=== PATIENT | male | born 1960 | race Caucasian/White ===

== ENCOUNTER 2022-03-05 08:26 | Day surgery (SDC) | payer BC ==
[2022-03-02 13:34] VITALS: BMI 32.3
[2022-03-05 10:46] VITALS: BP 138/86; PULSE 67; RESP 20; TEMP 97.5
== END 2022-03-05 10:46 | disposition home or self-care (01) ==
LOC: FASU-ENDO 08:26
PROVIDERS: ATTEND Student in an Organized Health Care Education/Training Program
PROC: 0DB68ZX Excision of Stomach, Via Natural or Artificial Opening Endoscopic, Diagnostic (ICD-10-PCS; 2022-03-05)
PROC: 0DB98ZX Excision of Duodenum, Via Natural or Artificial Opening Endoscopic, Diagnostic (ICD-10-PCS; principal; 2022-03-05 09:49)
DX: K29.50 Unspecified chronic gastritis without bleeding (principal); K31.7 Polyp of stomach and duodenum; K44.9 Diaphragmatic hernia without obstruction or gangrene; K31.9 Disease of stomach and duodenum, unspecified; R10.13 Epigastric pain; R68.81 Early satiety
CPT/HCPCS: 88305-TC; 88342-TC

== ENCOUNTER 2022-03-06 12:55 | Observation (INO) | payer BC ==
[2022-03-06 13:48] LABS: HEMOGLOBIN 16.9 G/dL (11.7-16.9); MCH 30.5 pg (25.7-33.7); MCHC 35.3 g/dl (32.0-35.9); MEAN CELL VOLUME 86.4 fl (80-96); MEAN PLT VOLUME 7.6 fl (7.5-11.1); RBC 5.56 10^6/uL (4.00-5.60); RDW 14.6 % (11.9-15.9); WHITE BLOOD COUNT 7.4 10^3/uL (4.0-10.8)
[2022-03-06 13:56] LABS: ALBUMIN 4.4 g/dl (3.4-5.0); CALCIUM 9.7 mg/dl (8.5-10); CREATININE 0.9 mg/dl (0.55-1.3); TOT PROT 7.3 g/dl (6.4-8.2)
[2022-03-06 14:41] LABS: PLATELET ESTIMATE ADEQUATE
[2022-03-06 15:14] LABS: PHENCYCLIDINE,URINE NEGATIVE (NEGATIVE)
[2022-03-06 15:15] LABS: COCAINE, UR NEGATIVE (NEGATIVE); METHADONE, UR NEGATIVE (NEGATIVE); OPIATES, URI NEGATIVE (NEGATIVE); URINE BENZODIAZEPINES NEGATIVE (NEGATIVE)
[2022-03-06 15:22] LABS: URINE AMPHETAMINES NEGATIVE (NEGATIVE); URINE BARBITURATES NEGATIVE (NEGATIVE)
[2022-03-06] MEDS ORDERED: PANTOPRAZOLE SODIUM 40 MG in SODIUM CHLORIDE 100 ML IVPB ONE (15:24)
[2022-03-06] MEDS: ASPIRIN COATED 81 MG TABLET.EC PO SCH (15:35)
[2022-03-06 18:46] VITALS: BMI 34.4
[2022-03-07 08:08] LABS: HEMATOCRIT 44.7 % (35.4-49); HEMOGLOBIN 15.8 G/dL (11.7-16.9); MCH 30.7 pg (25.7-33.7); MCHC 35.4 g/dl (32.0-35.9); MEAN CELL VOLUME 86.8 fl (80-96); MEAN PLT VOLUME 7.8 fl (7.5-11.1); PLATELET COUNT 206.4 10^3/uL (134-434); RBC 5.15 10^6/uL (4.00-5.60); RDW 14.5 % (11.9-15.9); WHITE BLOOD COUNT 7.4 10^3/uL (4.0-10.8)
[2022-03-07 08:23] LABS: ALBUMIN 3.7 g/dl (3.4-5.0); BILIRUBIN,TOTAL 1.3 mg/dl (0.2-1); CALCIUM 8.9 mg/dl (8.5-10); CREATININE 0.8 mg/dl (0.55-1.3); MAGNESIUM 1.9 mg/dL (1.8-2.4); TOT PROT 6.2 g/dl (6.4-8.2)
[2022-03-07 08:54] VITALS: PULSE 83; RESP 16
[2022-03-07] MEDS: ASPIRIN COATED 81 MG TABLET.EC PO SCH (09:28)
[2022-03-07] MEDS ORDERED: PANTOPRAZOLE 20 MG TABLET PO SCH (10:00)
[2022-03-07] MEDS ORDERED: DOCUSATE SODIUM 100 MG CAPSULE (FP) PO SCH (11:33)
[2022-03-07 12:08] LABS: PLATELET ESTIMATE ADEQUATE
[2022-03-07 13:27] VITALS: BP 134/96; TEMP 98.4
[2022-03-07] MEDS ORDERED: ATORVASTATIN CA 40 MG TABLET (FP) PO SCH (22:00)
== END 2022-03-07 14:57 | disposition home or self-care (01) ==
LOC: FER 12:55 → FM/S 17:29
PROVIDERS: ADMIT Internal Medicine; ATTEND Nurse Practitioner Family
PROC: 3E033GC Introduction of Other Therapeutic Substance into Peripheral Vein, Percutaneous Approach (ICD-10-PCS; principal; 2022-03-06)
DX: K21.9 Gastro-esophageal reflux disease without esophagitis (principal); G45.9 Transient cerebral ischemic attack, unspecified; Z96.651 Presence of right artificial knee joint; K58.9 Irritable bowel syndrome, unspecified; E78.5 Hyperlipidemia, unspecified; Z20.822 Contact with and (suspected) exposure to COVID-19
CPT/HCPCS: 0241U-QW; 36415; 70450-TC; 71045-TC-FY; 80053; 80061; 80307; 81003; 83036; 83735; 84443; 84484; 85027; 93005; 99285-25; G0378

== ENCOUNTER 2022-07-29 06:00 | Day surgery (SDC) | payer BC ==
[2022-07-26 10:44] VITALS: BMI 33.9
[2022-07-29] MEDS ORDERED: ceFAZolin SODIUM 1 GM VIAL IVPB ONE (08:20)
[2022-07-29] MEDS ORDERED: BUPIVACAINE HCL/PF 0.5% (5MG/ML) 10 ML VIAL IJ ONE ×2 (08:38)
[2022-07-29] MEDS ORDERED: MICROFIBRILLAR COLLAGEN 1 GM EACH TP ONE (09:34)
[2022-07-29] MEDS ORDERED: ACETAMINOPHEN 500 MG TABLET (FP) PO PRN (10:06)
[2022-07-29] MEDS ORDERED: IBUPROFEN 800 MG/8 ML IJ IVPB PRN (10:06)
[2022-07-29] MEDS ORDERED: oxyCODONE HCL 5 MG TABLET PO PRN (10:06)
[2022-07-29] MEDS ORDERED: LACTATED RINGERS SOLUTION 1000 ML INFUS.BAG IV SCH (10:45)
[2022-07-29] MEDS ORDERED: LABETALOL HCL 20 MG/4 ML VIAL IVPUSH ONE (11:16)
[2022-07-29] MEDS ORDERED: ONDANSETRON 4 MG/2 ML VIAL IVPB ONE (12:51)
[2022-07-29 13:36] VITALS: RESP 18
[2022-07-29 14:54] VITALS: BP 138/85; PULSE 77; TEMP 98.1
== END 2022-07-29 14:40 | disposition home or self-care (01) ==
LOC: JASU-SURG 06:00
PROVIDERS: ATTEND Surgery
PROC: 0GBH0ZX Excision of Right Thyroid Gland Lobe, Open Approach, Diagnostic (ICD-10-PCS; principal; 2022-07-29 08:00)
DX: E04.2 Nontoxic multinodular goiter (principal)
CPT/HCPCS: 88307-TC; 94760